=== PATIENT | female | born 1930 | race Caucasian/White ===

== ENCOUNTER → 2016-12-02 | Day surgery (SDC) | payer MEDICARE, BC ==
[~2016-12-02] MED LIST: AMLODIPINE BESYL5 MG PO; CLOPIDOGREL75 MG PO; CRESTOR10 MG PO; HYDROCHLOROTHIA25 MG PO; METANX CAPSULE1 EACH PO; MOEXIPRIL HCL15 M1 PO; MOEXIPRIL-HCTZ1 EACH; ZETIA PO
--- NOTE | ~2016-12-02 | OR ---
Unit #: [id number] #: [id number] Patient: ANDREW MARRERO [id number] [address] [place], [place] [address] [id number] MR#: [id number] NAME: ANDREW MARRERO. ROOM: Date of Procedure: 12/02/2016 Admission Date: 12/02/2016 Surgeon: Abelino Yoon M.D. : 1930 Attending Physician: Patricio Yoon Primary Care Physician: Toni Arguello M.D. SUR[facility] CENTER OPERATIVE NOTE PROCEDURE PERFORMED Thoracic epidural steroid injection under x-ray guided needle placement with provider administered conscious sedation. PREOPERATIVE DIAGNOSES 1. Acute thoracic radiculitis. 2. Spinal stenosis, thoracic spine. 3. Compression fracture, T11-T12. 4. 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 5. Facet arthralgia. 6. Degenerative joint disease, multiple levels, thoracic and lumbar spine. 7. Degenerative disk disease, multiple levels, thoracic and lumbar spine. 8. Bilateral right greater than left sacroiliitis. INDICATIONS FOR PROCEDURE The patient presents today with a longstanding history of right radicular pain, which has gotten worse after recent fall. This pain is failed to respond to conservative treatment and she presents today with x-ray studies supporting her painful symptoms, and these painful symptoms have failed to respond to conservative measures. After discussing risks and benefits of proceeding today with thoracic epidural steroid injection as well as return in 2 weeks for a potential repeat and return in two weeks after that for potential sacroiliac injections, the patient now agreed this would be the appropriate course of action. We also discussed referral to [facility] for potential radiofrequency ablation. We both agreed this would be a good course of action. DESCRIPTION OF PROCEDURE Following these discussions, the patient was taken to the operating room where she was prepped and draped in a sterile manner. Standard monitors were applied. She was sedated with 1 mg of IV Versed initially and required an additional 1 mg of IV Versed throughout the duration of the procedure. Lumbar epidural space accessed at the T12-L1 level using loss of resistance technique and x-ray guidance. Needle placement was confirmed with injection of 2 mL of Omnipaque. Almost, 100% of dye was in the superior direction. After approximately 1/2 of injectate solution of 4 mL of normal saline and 80 mg of methylprednisolone was injected, the patient began experiencing left-sided paresthesia which was unbearable to her. Needle was then withdrawn with resolution of the paresthesia. A new sterile set was subsequently attained and the L1-L2 interspace was accessed using loss of resistance technique and x-ray guidance. Needle placement at this level was again confirmed with injection of 2 mL of Omnipaque. At this level, approximately 80% of dye flow was in the Unit #: [id number] #: [id number] Patient: ANDREW MARRERO superior direction. Following successful needle placement confirmation, the patient received an injectate containing the rest of the original amount. Her total injectate volume today was 4 mL of normal saline and 80 mg of methylprednisolone. She tolerated this procedure well and was discharged home with followup instructions, which include return dates as described above. Dictated by... Rupal Catherine/pham TD: 12/02/2016 15:42 JOB #: [id number] SUR[facility]ENTER OPERATIVE NOTE Page 1 of 1 X Patricio Yoon MD X PROCEDURE OPERATIVE NOTE
== END | disposition home or self-care (01) ==
LOC: CCSC 13:06
DX: M51.36 Other intervertebral disc degeneration, lumbar region (principal); M48.54XA Collapsed vertebra, not elsewhere classified, thoracic region, initial encounter for fracture; M51.14 Intervertebral disc disorders with radiculopathy, thoracic region; M47.24 Other spondylosis with radiculopathy, thoracic region; M47.25 Other spondylosis with radiculopathy, thoracolumbar region; M48.04 Spinal stenosis, thoracic region; M47.816 Spondylosis without myelopathy or radiculopathy, lumbar region; Z90.710 Acquired absence of both cervix and uterus; Z79.02 Long term (current) use of antithrombotics/antiplatelets; Z79.891 Long term (current) use of opiate analgesic; Z79.899 Other long term (current) drug therapy; Z95.5 Presence of coronary angioplasty implant and graft
CPT/HCPCS: J1040; J2250

== ENCOUNTER → 2016-12-16 | Day surgery (SDC) | payer MEDICARE, BC ==
--- NOTE | ~2016-12-16 | OR ---
Unit #: [id number] #: [id number] Patient: ANDREW MARRERO [id number] [address] [place], [place] [address] [id number] O MR#: [id number] NAME: ANDREW MARRERO. ROOM: Date of Procedure: 12/16/2016 Admission Date: 12/16/2016 Surgeon: Abelino Yoon M.D. : 1930 Attending Physician: Abelino Yoon M.D. Referring Physician: Abelino Yoon M.D. Primary Care Physician: Toni Arguello M.D. SURGERY CENTER OPERATIVE NOTE PROCEDURE PERFORMED Thoracic epidural steroid injection under x-ray guided needle placement with provider administered conscious sedation. PREOPERATIVE DIAGNOSES 1. Acute thoracic radiculitis. 2. Compression fracture, T12. 3. Spinal stenosis, T11-T12, T12-L1. 4. Degenerative joint disease, lumbosacral spine. 5. Degenerative disk disease, lumbosacral spine. INDICATIONS FOR PROCEDURE The patient presents today status post one previous thoracic epidural steroid injection for an acute radiculitis, which had failed to respond to conservative therapy. She states she got good relief with 40% to 60% reduction in symptoms; however, this reduction in the symptoms are not complete nor they completely long lasting as she has had some return of symptoms as well as an unacceptable residual remaining. After discussing risks and benefits of proceeding today with second epidural steroid injection, the patient now agreed this would be the appropriate course of action. We also discussed to return to this clinic on 03/19/2017 as well as referral to [facility] in the interim for potential facet joint and/or radiofrequency ablation treatment. DESCRIPTION OF PROCEDURE Following these discussions, the patient was taken to the operating room, where she was prepped and draped in a sterile manner. Standard monitors were applied. She was sedated with 2 mg of IV Versed and lumbar epidural space accessed at T12-L1 level using loss of resistance technique and x-ray guidance. Needle placement was confirmed with the injection of 2 mL of Omnipaque. Approximately, 80% of dye flow was in the superior direction, but this was considered acceptable. Following successful needle placement confirmation which required an x-ray time of 6 seconds, the patient received an injectate containing 4 mL of normal saline and 80 mg of methylprednisolone. She tolerated this procedure well. She was discharged home with followup instructions, which include return dates as described above. Dictated by... Rupal Catherine/pham Unit #: [id number] #: [id number] Patient: ANDREW MARRERO TD: 12/16/2016 13:24 JOB #: [id number] CC: Toni Arguello M.D. SURGERY CENTER OPERATIVE NOTE Page 1 of 1 X Patricio Yoon MD X PROCEDURE OPERATIVE NOTE
== END | disposition home or self-care (01) ==
LOC: CCSC 07:09
DX: S22.089A Unspecified fracture of T11-T12 vertebra, initial encounter for closed fracture (principal); M54.14 Radiculopathy, thoracic region; M48.04 Spinal stenosis, thoracic region; M51.37 Other intervertebral disc degeneration, lumbosacral region; X58.XXXA Exposure to other specified factors, initial encounter; Z95.5 Presence of coronary angioplasty implant and graft; Z90.710 Acquired absence of both cervix and uterus
CPT/HCPCS: J1040; J2250